=== PATIENT | male | born 1945 | race Caucasian/White ===

== ENCOUNTER 2019-05-03 15:34 | Emergency (ER) | payer MEDICARE, BC ==
[~2019-05-03] VITALS: Ht 175.3 cm; Wt 57.0 kg
[~2019-05-03 15:34] MED LIST: ASPIRIN LOW DOS81 M1 PO; AUGMENTIN875TAB PO; AVODART0.5 MG PO; BL ADULT ASA81 MG PO; DOXYCYCL HYC100 MG PO; LISINOPRIL20 MG PO
[2019-05-03 16:35] VITALS: BP 133/85
== END 2019-05-03 16:35 | disposition home or self-care (01) ==
LOC: ED 15:34
DX: S51.811A Laceration without foreign body of right forearm, initial encounter (principal); W01.0XXA Fall on same level from slipping, tripping and stumbling without subsequent striking against object, initial encounter; Y93.K9 Activity, other involving animal care; Y92.009 Unspecified place in unspecified non-institutional (private) residence as the place of occurrence of the external cause

== ENCOUNTER 2019-08-09 14:16 | Emergency (ER) | payer MEDICARE, BC ==
[~2019-08-09] VITALS: Ht 175.3 cm; Wt 54.5 kg
[2019-08-09 15:38] VITALS: BP 142/73
== END 2019-08-09 15:38 | disposition home or self-care (01) ==
LOC: ED 14:16
PROC: 0HQDXZZ Repair Right Lower Arm Skin, External Approach (ICD-10-PCS; principal; 2019-08-09)
DX: S51.811A Laceration without foreign body of right forearm, initial encounter (principal); W22.8XXA Striking against or struck by other objects, initial encounter; Y93.89 Activity, other specified

== ENCOUNTER 2022-09-13 22:06 | Inpatient (IN) | payer MEDICARE, BC ==
[~2022-09-13] VITALS: Ht 175.3 cm; Wt 70.5 kg
[2022-09-13 22:17] VITALS: BP 138/79
[2022-09-13 22:30] VITALS: BP 131/77
[2022-09-13] MEDS ORDERED: ARICEPT PO (22:37)
[2022-09-13] MEDS ORDERED: ACETAMINOP160 MG/5 M PO (22:38)
[2022-09-13 22:39] LABS: BASO% 0.5 % (0-3); EOS% 0.2 % (0-8); HEMATOCRIT 35.3 % (39.0-50.0); HEMOGLOBIN 11.6 g/dl (14.0-18.0); IMMATURE GRANULOCYTES 2.4 % (0.0-5.0); LYMPH% 2.9 % (15-41); MEAN CORPUSCULAR HGB 30.5 pG CALC (26.0-32.0); MEAN CORPUSCULAR HGB CONC 32.9 g/dL CAL (32.0-36.0); MONO% 14.2 % (2-13); NEUT# 4.6 thou/uL (1.82-7.42); NEUT% 79.8 % (42-76); RED BLOOD COUNT 3.8 mill/uL (4.70-6.10)
[2022-09-13 22:48] LABS: MEAN CELL VOLUME 92.9 fL CALC (80.0-100.0)
[2022-09-13 23:08] VITALS: BP 137/81
[2022-09-13 23:14] LABS: ALBUMIN 3.8 g/dL (3.2-5.0); ALKALINE PHOSPHATASE 99 u/l (38-126); BUN 21 mg/dL (8-23); BUN/CREATININE RATIO 17 (12-20 (CALC)); CHLORIDE 108 mmol/l (95-108); CREATININE 1.2 mg/dL (0.7-1.3); GFR FOR AFR.AMER. > 60 ML/MIN (>=60 (CALC)); GFR OTHER RACES 59 ML/MIN (>=60 (CALC)); POTASSIUM 4.1 mmol/l (3.5-5.1); SGOT/AST 37 u/l (19-48); SODIUM 141 mmol/l (137-146)
[2022-09-13 23:22] LABS: ANION GAP 14 (6-22 (CALC)); CARBON DIOXIDE 23 mmol/l (22-30)
[2022-09-13 23:30] VITALS: BP 139/77
[2022-09-14] VITALS (7 sets, daily range): BP systolic 99–139; BP diastolic 47–77
[2022-09-14 03:26] LABS: URINE BILIRUBIN - DIPSTICK NEGATIVE (NEGATIVE); URINE BLOOD DIPSTICK LARGE (NEGATIVE); URINE CLARITY SL CLOUDY; URINE COLOR YELLOW; URINE GLUCOSE - DIPSTICK NEGATIVE (NEGATIVE); URINE KETONE TRACE mg/dL (NEGATIVE); URINE LEUK ESTERASE NEGATIVE (Negative); URINE NITRITE - DIPSTICK NEGATIVE (Negative); URINE PROTEIN - DIPSTICK NEGATIVE (NEG-TRACE); URINE SPECIFIC GRAVITY >=1.030; URINE UROBILINOGEN - DIPSTICK 0.2 E.U./dL (0.2)
[2022-09-14 03:37] LABS: URINE BACTERIA FEW hpf; URINE MUCUS FEW hpf (NONE-FEW); URINE RBC 25-50 RBC/hpf (0-5); URINE SQUAMOUS EPITHELIAL CELL FEW EPI/hpf (0-FEW); URINE WBC 0-2 WBC/hpf (0-5)
[2022-09-15] VITALS (9 sets, daily range): BP systolic 109–149; BP diastolic 54–76
[2022-09-15 05:17] LABS: EOS% 0.1 % (0-8); IMMATURE GRANULOCYTES 3.3 % (0.0-5.0); LYMPH% 3.2 % (15-41); MEAN CORPUSCULAR HGB CONC 32.3 g/dL CAL (32.0-36.0); MONO% 13.5 % (2-13); NEUT# 10.98 thou/uL (1.82-7.42); NEUT% 78.9 % (42-76); RED BLOOD COUNT 2.74 mill/uL (4.70-6.10); RED CELL DISTRI WIDTH 16.8 % (11.5-15.5)
[2022-09-15 05:20] LABS: HEMATOCRIT 26.3 % (39.0-50.0); HEMOGLOBIN 8.5 g/dl (14.0-18.0)
[2022-09-15 05:45] LABS: ALKALINE PHOSPHATASE 56 u/l (38-126); ANION GAP 7 (6-22 (CALC)); BILIRUBIN, TOTAL 0.7 mg/dL (0.0-1.4); BUN 18 mg/dL (8-23); BUN/CREATININE RATIO 17 (12-20 (CALC)); CARBON DIOXIDE 21 mmol/l (22-30); CHLORIDE 114 mmol/l (95-108); CREATININE 1.1 mg/dL (0.7-1.3); GFR FOR AFR.AMER. > 60 ML/MIN (>=60 (CALC)); GFR OTHER RACES > 60 ML/MIN (>=60 (CALC)); SODIUM 138 mmol/l (137-146)
[2022-09-15 05:46] LABS: ALBUMIN 2.3 g/dL (3.2-5.0); SGOT/AST 67 u/l (19-48); TOTAL PROTEIN 4.9 g/dL (6.3-8.2)
[2022-09-16] VITALS: BP 146/76
[2022-09-16 04:10] VITALS: BP 169/88
[2022-09-16 06:35] VITALS: BP 164/80
[2022-09-16 19:49] VITALS: BP 117/75
[2022-09-16 23:30] VITALS: BP 139/82
[2022-09-17] VITALS (9 sets, daily range): BP systolic 139–171; BP diastolic 75–93
[2022-09-17 05:34] LABS: BASO% 1.9 % (0-3); EOS% 0.2 % (0-8); HEMATOCRIT 25.7 % (39.0-50.0); HEMOGLOBIN 8.3 g/dl (14.0-18.0); IMMATURE GRANULOCYTES 3.4 % (0.0-5.0); LYMPH% 10.6 % (15-41); MEAN CELL VOLUME 95.9 fL CALC (80.0-100.0); MEAN CORPUSCULAR HGB CONC 32.3 g/dL CAL (32.0-36.0); MONO% 18.3 % (2-13); NEUT# 3.48 thou/uL (1.82-7.42); NEUT% 65.6 % (42-76); RED BLOOD COUNT 2.68 mill/uL (4.70-6.10); RED CELL DISTRI WIDTH 16.6 % (11.5-15.5)
[2022-09-17 05:47] LABS: ANION GAP 6 (6-22 (CALC)); BUN 14 mg/dL (8-23); BUN/CREATININE RATIO 16 (12-20 (CALC)); CARBON DIOXIDE 25 mmol/l (22-30); CHLORIDE 110 mmol/l (95-108); CREATININE 0.9 mg/dL (0.7-1.3); GFR FOR AFR.AMER. > 60 ML/MIN (>=60 (CALC)); GFR OTHER RACES > 60 ML/MIN (>=60 (CALC)); MAGNESIUM 1.8 mg/dL (1.6-2.3); POTASSIUM 3.8 mmol/l (3.5-5.1); SODIUM 138 mmol/l (137-146)
[2022-09-18 05:19] VITALS: BP 150/75
[2022-09-18 05:30] LABS: BASO% 0.8 % (0-3); EOS% 0.3 % (0-8); HEMATOCRIT 25.5 % (39.0-50.0); HEMOGLOBIN 8.4 g/dl (14.0-18.0); LYMPH% 11.1 % (15-41); MEAN CELL VOLUME 94.8 fL CALC (80.0-100.0); MEAN CORPUSCULAR HGB 31.2 pG CALC (26.0-32.0); MEAN CORPUSCULAR HGB CONC 32.9 g/dL CAL (32.0-36.0); MONO% 26.2 % (2-13); NEUT# 2.03 thou/uL (1.82-7.42); NEUT% 56.6 % (42-76); RED BLOOD COUNT 2.69 mill/uL (4.70-6.10); RED CELL DISTRI WIDTH 16.6 % (11.5-15.5)
[2022-09-18 05:48] LABS: ALBUMIN 2.6 g/dL (3.2-5.0); ALKALINE PHOSPHATASE 73 u/l (38-126); ANION GAP 6 (6-22 (CALC)); BILIRUBIN, TOTAL 0.9 mg/dL (0.0-1.4); BUN 16 mg/dL (8-23); BUN/CREATININE RATIO 19 (12-20 (CALC)); CARBON DIOXIDE 27 mmol/l (22-30); CHLORIDE 109 mmol/l (95-108); CREATININE 0.9 mg/dL (0.7-1.3); GFR FOR AFR.AMER. > 60 ML/MIN (>=60 (CALC)); GFR OTHER RACES > 60 ML/MIN (>=60 (CALC)); POTASSIUM 3.5 mmol/l (3.5-5.1); SGOT/AST 33 u/l (19-48); SODIUM 138 mmol/l (137-146); TOTAL PROTEIN 5.6 g/dL (6.3-8.2)
[2022-09-18 10:42] VITALS: BP 155/84
== END 2022-09-18 16:09 | DRG 871 ==
LOC: ED 22:06 → ED-I 23:30 → ED 23:43 → MS2 23:44
PROVIDERS: Family Medicine; Nurse Practitioner Family; ADMIT Internal Medicine; ATTEND Internal Medicine
DX: A41.9 Sepsis, unspecified organism (principal); J18.9 Pneumonia, unspecified organism; J96.01 Acute respiratory failure with hypoxia; D61.818 Other pancytopenia; R65.20 Severe sepsis without septic shock; F03.90 Unspecified dementia, unspecified severity, without behavioral disturbance, psychotic disturbance, mood disturbance, and anxiety; N40.0 Benign prostatic hyperplasia without lower urinary tract symptoms; Z20.822 Contact with and (suspected) exposure to COVID-19
CPT/HCPCS: J1650; J1956